=== PATIENT | female | born 1965 | race African-American/Black ===

== ENCOUNTER 2016-06-11 21:58 | Emergency (ER) | payer MEDICAID ==
[2016-06-11 22:42] VITALS: TEMP 98.7; BMI 59.2
--- NOTE | 2016-06-12 00:11 | EDPRACDOC ---
- General Information Chief Complaint: Sore Throat Stated Complaint: THROAT PROBLEM Time Seen by Provider: 06/12/16 00:03 Information Source: Patient Mode Of Arrival: Car Home Medications: Home Medications Cefdinir [Omnicef] 300 mg PO BID #20 cap 06/12/16 Prednisone [Deltasone, Orasone] 20 mg PO DAILY #20 tab 06/12/16 Allergies/Adverse Reactions: Allergies Allergy/AdvReac Type Severity Reaction Status Date / Time Penicillins Allergy Hives* Verified 06/11/16 22:42 - History of Present Illness Onset: Yesterday HPI: Pt c/o sore throat x 2 days. Denies fever, earache, congestion, cough, sob, abd pain, n/v, rash. Pt states noticed white spots on throat tonight. Sore Throat Symptoms: Reports: Pain White Spots Location: Reports: Pharynx Recent: Reports: None Relevant History of: Reports: None Pain Severity: Reports: Moderate Urinary Output: Normal Oral Intake: Normal Associated Signs and Symptoms: Reports: None ED Past Medical History - History Reviewed Yes Nurses notes reviewed and agree except as marked - Patient Medical History Surgical History: Reports: Cholecystectomy - Social Medical History Smoking Status: Never smoker ETOH: None Substance Abuse: None EDM Review of Systems - Review of Systems Constitutional: No Symptoms Reported. negative: Fever, Chills, Weakness, Fatigue, Loss of Appetite Ears: No Symptoms Reported. negative: Pain, Hearing Loss, Drainage, Ear Pulling Throat: Pain Nose: No Symptoms Reported. negative: Congestion, Bleeding, Discharge, Injection, Swelling, Deformity, Ecchymosis, Tender, Abrasion, Laceration Mouth: No Symptoms Reported. negative: Pain, Drooling Respiratory: No Symptoms Reported. negative: Cough, Brassy Cough, Barky Cough, Shortness of Breath, Wheezing, Hemoptysis Cardiovascular: No Symptoms Reported. negative: Chest Pain, Palpitations, Syncope, Edema, Orthopnea, PND, Skin Mottling, Cyanosis Gastrointestinal: No Symptoms Reported. negative: Pain, Constipation, Nausea, Vomiting, Diarrhea, Melena, Formula Intolerance Integumentary: No Symptoms Reported. negative: Itching, Rash, Bruising, Wound Allergic/Immunologic: No Symptoms Reported. negative: Hives, Itching Hematologic: No Symptoms Reported. negative: Lymphadenopathy, Easy Bruising, Easy Bleeding - Physical Exam Constitutional: Alert Oriented to: Time, Person, Place Last recorded Vital Signs: Last Vital Signs Temp 98.7 F 06/11/16 22:38 Pulse 108 06/11/16 22:38 Resp 20 06/11/16 22:38 BP 160/72 06/11/16 22:38 Pulse Ox 94 06/11/16 22:38 Oxygen Pulse Oxygen Saturation 94 O2 Device Room Air Oxygen Flow Rate Fraction of Inspired Oxygen ( FIO2) - HEENT Head: Normal ( normocephalic) Eye Exam: Normal (PERRL, EOMI, Sclera white) Oropharynx: Exudate, Red, Tonsillar Hypertrophy Tympanic Membrane: Bulging, Redness (bilateral) ENT EAC: Normal Nose: No Symptoms Reported (septum midline) Neck: Normal (FROM, trachea at midline) - Respiratory/Cardiovascular Respiratory: Normal - CTA (BBS clear to auscultation without adventitious sounds ) Cardiovascular: Normal (RRR without murmur, gallop or rub) - Integumentary Skin: Normal, Warm, Dry Lymphatics: Normal (no adenopathy) - Neurologic Memory Impaired: Normal Motor Function: Normal (Normal tone, Pulses 2+ No cyanosis or edema, FROM) Mood Description: Normal Perception: Normal - Differential Diagnosis Other (OTITIS media), Pharyngitis Streptococcal, Pharyngitis Viral, URI - Results Microbiology 06/11/16 22:43 Group A Streptococcus Rapid Screen - Final Throat - Rapid Strep NEGATIVE ("NORMAL" value = "NEGATIVE".) Decision Time to Discharge: 00:12 - Departure Disposition: Home Condition: Good Final Diagnosis: Acute pharyngitis Otitis media Qualifiers: Otitis media type: unspecified Laterality: bilateral Chronicity: unspecified Qualified Code(s): H66.93 - Otitis media, unspecified, bilateral Instructions: Pharyngitis (ED), Otitis Media (ED) Education/Counseling Given To: Patient Education/Counseling Given Regarding: Diagnosis, Treatment, Follow Up Referrals: None,No Provider [Primary Care Provider] - One Week Kumar Wu MD [Staff Physician] - One Week Prescriptions: Cefdinir [Omnicef] 300 mg PO BID #20 cap Prednisone [Deltasone, Orasone] 20 mg PO DAILY #20 tab Additional Instructions: Return for worse or different symptoms.
[2016-06-12 00:25] VITALS: BP 155/74; PULSE 102
== END 2016-06-12 00:25 | disposition home or self-care (01) ==
LOC: ED 21:58
DX: J02.9 Acute pharyngitis, unspecified (principal); H66.93 Otitis media, unspecified, bilateral
CPT/HCPCS: 87880; 99282